=== PATIENT | female | born 1965 | race Caucasian/White ===

== ENCOUNTER 2017-07-21 07:47 | Day surgery (SDC) | payer MEDICAID ==
[~2017-07-21] VITALS: Ht 167.6 cm; Wt 56.8 kg
[2017-07-21 08:05] VITALS: BP 116/75; PULSE 56; RESP 20; TEMP 97.9; O2SAT 98
[2017-07-21 08:57] LABS: AUTOMATED NEUTROPHIL # 2.5 TH/MM3 (1.8-7.7); BASOPHIL # 0.1 TH/MM3 (0-0.2); BASOPHIL % 1.2 % (0.0-2.0); EOSINOPHIL # 0.1 TH/MM3 (0-0.4); EOSINOPHIL % 2.5 % (0.0-4.0); HEMATOCRIT 41.2 % (35.0-46.0); HEMO FLAGS DIFF FINAL; LYMPH % 30.8 % (9.0-44.0); LYMPHOCYTE # 1.4 TH/MM3 (1.0-4.8); MEAN CELL VOLUME 90.2 FL (80.0-100.0); MEAN CORPUSCULAR HEMOGLOBIN 30.8 PG (27.0-34.0); MEAN CORPUSCULAR HGB CONC 34.2 % (32.0-36.0); MONO % 10.7 % (0.0-8.0); NEUT % 54.8 % (16.0-70.0); PLATELET COUNT 238 TH/MM3 (150-450); RED BLOOD COUNT 4.57 MIL/MM3 (4.00-5.30); RED CELL DISTRIBUTION WIDTH 13.6 % (11.6-17.2); WHITE BLOOD COUNT 4.6 TH/MM3 (4.0-11.0)
[2017-07-21 09:03] LABS: APTT (PATIENT) 26.2 SEC (24.3-30.1); INTERNATIONAL NORMALIZED RATIO 0.9 RATIO; PROTHROMBIN TIME - PATIENT 10.3 SEC (9.8-11.6)
[2017-07-21] MEDS ORDERED: LIDOCAINE HCL 1% 20 ML VIAL ONE (09:17)
[2017-07-21] MEDS ORDERED: MIDAZOLAM HCL 2 MG/2 ML VIAL ONE (09:19)
[2017-07-21 10:30] VITALS: BP 107/70; PULSE 60; RESP 16; TEMP 97.5
[2017-07-21 10:40] LABS: BONE MARROW PROCESSING COMPLETE; IRON STAIN DONE; JENNER GIEMSA STAIN DONE
--- NOTE | 2017-07-21 10:44 | RADRPT ---
EXAM DATE/TIME: 07/21/2017 09:55 [facility] COMPARISON: No previous studies available for comparison. INDICATIONS : Lymphoma SEDATION TIME: 30 minutes BIOPSY SITE: Right ilium MEDICATION(S): 1.) 2 mg midazolam (Versed) IV 2.) 100 mcg fentanyl (Sublimaze) IV DEVICE(S): 1.) 12 gauge On-Control needle MEDICAL HISTORY : Lymphoma. SURGICAL HISTORY : None. ENCOUNTER: Initial ACUITY: 1 day PAIN SCORE: 0/10 LOCATION: lower quadrant A total of one core specimen(s) were obtained and sent to the laboratory for pathologic evaluation. PROCEDURE: 1. CT guided bone marrow biopsy. Prior to the procedure informed consent was obtained. Any appropriate prior imaging studies were rev iewed. Using automated exposure control and adjustment of the mA and/or kV according to patient size , radiation dose was kept as low as reasonably achievable to obtain optimal diagnostic quality images . DICOM format image data is available electronically for review and comparison. The site was prepped in a sterile fashion. Full sterile technique was used, including cap, mask, kristina rile gloves and gown and a large sterile sheet. Hand hygiene and 2% chlorhexidine and/or betadine/al cohol prep was utilized per protocol for cutaneous antisepsis. The skin and subcutaneous tissues wer e infiltrated with local anesthetic solution. With CT guidance the previously identified target was localized. Biopsy was performed using the presc ribed needle as above. Following biopsy marrow aspiration was performed with repeat puncture. Adequa te hemostasis was obtained with compression at the puncture site. Follow-up CT scan reveals no hemorrhage. Conscious sedation was performed with the prescribed dosages and duration as above in the presence of an independent trained radiology nurse to assist in the monitoring of the patient. EKG and oximetry remained stable throughout the procedure. The patient tolerated the procedure well and there were no complications. The patient was sent to Radiology Outpatient Unit in stable condition. CONCLUSION: 1. Uncomplicated CT guided bone marrow aspirate. 2. Uncomplicated CT guided bone marrow biopsy. Sukhi Santana MD on July 21, 2017 at 10:42 Board Certified Radiologist. This report was verified electronically.
[2017-07-21 10:45] VITALS: BP 104/69; PULSE 50; RESP 14; O2SAT 94
--- NOTE | 2017-07-21 11:10 | PD.RAD ---
Post CT Procedure Prog Note Pre Procedure Diagnosis: (1) Non-Hodgkin lymphoma Post Procedure Diagnosis: (1) Non-Hodgkin lymphoma Procedure Date: Jul 21, 2017 Supervising Radiologist: Sukhi Santana Anesthesia: Conscious Sedation Plan of Activity Patient to Unit: [facility] Patient Condition: Good See PACS Report for procedural detail/treatment Biopsy Imaging Guidance: CT Side: Right Biopsy Procedure: Bone Marrow Specimen: Core Biopsy Sukhi Santana MD Jul 21, 2017 11:10
[2017-07-21 11:15] VITALS: BP 106/69; PULSE 53; RESP 16; O2SAT 96
[2017-07-21 11:45] VITALS: BP 104/77; PULSE 54; RESP 16; O2SAT 95
[2017-07-21 12:15] VITALS: BP 106/63; PULSE 56; RESP 16; O2SAT 96
== END 2017-07-21 12:45 | disposition home or self-care (01) ==
LOC: HROP 07:47 → HRIP 07:48 → HROP 12:45
PROVIDERS: ATTEND Internal Medicine
DX: C85.90 Non-Hodgkin lymphoma, unspecified, unspecified site (principal)
CPT/HCPCS: 38221; 77012; 85025; 85097; 85610; 85730; 88305; 88311; 88313; 99152; 99153; C1830; G0364; J2250; J3010

== ENCOUNTER 2017-08-05 12:22 | Observation (INO) | payer MEDICAID ==
[~2017-08-05] VITALS: Ht 170.2 cm; Wt 57.7 kg
[2017-08-05 12:23] VITALS: BP 149/69; PULSE 97; RESP 16; TEMP 98; O2SAT 99
[2017-08-05 12:45] VITALS: BP 122/73; PULSE 54; RESP 16; O2SAT 98
[2017-08-05 13:45] LABS: AUTOMATED NEUTROPHIL # 3.3 TH/MM3 (1.8-7.7); BASOPHIL # 0.1 TH/MM3 (0-0.2); BASOPHIL % 1.2 % (0.0-2.0); EOSINOPHIL # 0.1 TH/MM3 (0-0.4); EOSINOPHIL % 1.3 % (0.0-4.0); HEMATOCRIT 40.7 % (35.0-46.0); HEMO FLAGS DIFF FINAL; LYMPH % 28.6 % (9.0-44.0); LYMPHOCYTE # 1.6 TH/MM3 (1.0-4.8); MEAN CELL VOLUME 90.3 FL (80.0-100.0); MEAN CORPUSCULAR HEMOGLOBIN 30.3 PG (27.0-34.0); MEAN CORPUSCULAR HGB CONC 33.6 % (32.0-36.0); MONO % 9.7 % (0.0-8.0); NEUT % 59.2 % (16.0-70.0); PLATELET COUNT 258 TH/MM3 (150-450); RED BLOOD COUNT 4.51 MIL/MM3 (4.00-5.30); RED CELL DISTRIBUTION WIDTH 13.4 % (11.6-17.2); WHITE BLOOD COUNT 5.6 TH/MM3 (4.0-11.0)
[2017-08-05] MEDS ORDERED: NALOXONE HCL 0.4 MG/ML AMP IV PUSH PRN (13:45)
[2017-08-05] MEDS ORDERED: ACETAMINOPHEN 325 MG TAB PO PRN ×2 (13:45)
[2017-08-05] MEDS ORDERED: MORPHINE SULFATE 4 MG/ML INJ IV PUSH PRN (13:45)
[2017-08-05] MEDS ORDERED: SODIUM CHLORIDE 0.9% FLUSH 10 ML FLUSH IV FLUSH PRN (13:45)
[2017-08-05 14:06] LABS: ANION GAP 7 MEQ/L (5-15); AST (GOT) 15 U/L (15-37); BICARBONATE 28.4 MEQ/L (21.0-32.0); BLOOD UREA NITROGEN 9 MG/DL (7-18); CHLORIDE 106 MEQ/L (98-107); GLOMERULAR FILTRATION RATE 72 ML/MIN (>89); POTASSIUM 3.9 MEQ/L (3.5-5.1); SODIUM (NA) 141 MEQ/L (136-145)
[2017-08-05 14:07] LABS: ALT (GPT) 17 U/L (10-53)
[2017-08-05 14:10] LABS: ALKALINE PHOSPHATASE 79 U/L (45-117); TOTAL BILIRUBIN ADULT 0.8 MG/DL (0.2-1.0)
[2017-08-05 14:26] VITALS: O2SAT 99
--- NOTE | 2017-08-05 14:29 | PD ---
HPI Chief Complaint: Lump, Cyst, Hernia Time Seen by Provider: 12:50 Travel History International Travel<30 days: No Contact w/Intl Traveler<30days: No Traveled to known affect area: No History of Present Illness HPI 51-year-old woman presents to the emergency department complaining of dizziness weakness shortness of breath and difficulty swallowing. She is a history of remote non-Hodgkin's lymphoma, never treated. Presents with worsening neck mass. Initially was evaluate by Dr. Maldonado, and oncology. She's had a PET scan, bone marrow biopsy, multiple labs. He still did have an excisional biopsy. When for an appointment with him today and was sent to the emergency department for worsening trouble swallowing, shortness of breath, dizziness. I spoke with Dr. Garcia states she is worried about proximity to the carotid given the large size of the mass. Recommended admission for further evaluation. History Past Medical History Narrative Medical Probable lymphoma Tetanus Vaccination: > 5 Years Social History Alcohol Use: No Tobacco Use: No Allergies-Medications (Allergen,Severity, Reaction): Coded Allergies: amoxicillin (Verified Allergy, Severe, Rash, 08/05/17) Reported Meds & Prescriptions Reported Meds & Active Scripts Active No Active Prescriptions or Reported Medications Review of Systems Except as stated in HPI: all other systems reviewed are Neg Physical Exam Narrative GENERAL: 51-year-old woman, no acute distress. SKIN: Focused skin assessment warm/dry. HEAD: Atraumatic. Normocephalic. EYES: Pupils equal and round. No scleral icterus. No injection or drainage. ENT: No nasal bleeding or discharge. Mucous membranes pink and moist. NECK: Trachea midline. No JVD. Heart palpable adenopathy, especially on the left. CARDIOVASCULAR: Regular rate and rhythm. No murmur appreciated. RESPIRATORY: No accessory muscle use. Clear to auscultation. Breath sounds equal bilaterally. GASTROINTESTINAL: Abdomen soft, non-tender, nondistended. Hepatic and splenic margins not palpable. MUSCULOSKELETAL: No obvious deformities. No clubbing. No cyanosis. No edema. NEUROLOGICAL: Awake and alert. No obvious cranial nerve deficits. Motor grossly within normal limits. Normal speech. PSYCHIATRIC: Appropriate mood and affect; insight and judgment normal. Data Data Last Documented VS Vital Signs Date Time Temp Pulse Resp B/P (MAP) Pulse Ox O2 Delivery O2 Flow Rate FiO2 08/05/17 12:45 54 16 122/73 (89) 98 Room Air 08/05/17 12:23 98.0 Orders Orders Complete Blood Count With Diff (08/05/17 13:13) Comprehensive Metabolic Panel (08/05/17 13:13) Iv Access Insert/Monitor (08/05/17 13:13) Consult Medical Oncology (08/05/17 ) (Hub Use Only)Inp Phy Cons/Ref (08/05/17 ) Admit Order (Ed Use Only) (08/05/17 ) Vital Signs (Adult) Q4H (08/05/17 13:43) Activity Bed Rest (08/05/17 13:43) Notify Dr: Other (08/05/17 13:43) Admit To Inpatient (08/05/17 ) Vital Signs (Adult) Q4H (08/05/17 13:43) Activity Oob With Assistance (08/05/17 13:43) Diet Npo (08/05/17 Lunch) Sodium Chlor 0.9% 1000 Ml Inj (Ns 1000 M (08/05/17 13:43) Sodium Chloride 0.9% Flush (Ns Flush) (08/05/17 13:45) Sodium Chloride 0.9% Flush (Ns Flush) (08/05/17 21:00) Acetaminophen (Tylenol) (08/05/17 13:45) Resp Oxygen Chucho C Titrat 1-4 L (08/05/17 ) Case Management Consult (08/05/17 13:43) Enoxaparin Inj (Lovenox Inj) (08/05/17 13:45) Acetaminophen (Tylenol) (08/05/17 13:45) Oxycodone (Roxicodone) (08/05/17 13:45) Morphine Inj (Morphine Inj) (08/05/17 13:45) Oxycodone (Roxicodone) (08/05/17 13:45) Naloxone Inj (Narcan Inj) (08/05/17 13:45) Docusate Sodium-Senna (Zuly-Colace) (08/05/17 21:00) Inpatient Certification (08/05/17 ) Labs Laboratory Tests Test 08/05/17 13:25 White Blood Count 5.6 TH/MM3 Red Blood Count 4.51 MIL/MM3 Hemoglobin 13.7 GM/DL Hematocrit 40.7 % Mean Corpuscular Volume 90.3 FL Mean Corpuscular Hemoglobin 30.3 PG Mean Corpuscular Hemoglobin Concent 33.6 % Red Cell Distribution Width 13.4 % Platelet Count 258 TH/MM3 Mean Platelet Volume 7.4 FL Neutrophils (%) (Auto) 59.2 % Lymphocytes (%) (Auto) 28.6 % Monocytes (%) (Auto) 9.7 % Eosinophils (%) (Auto) 1.3 % Basophils (%) (Auto) 1.2 % Neutrophils # (Auto) 3.3 TH/MM3 Lymphocytes # (Auto) 1.6 TH/MM3 Monocytes # (Auto) 0.5 TH/MM3 Eosinophils # (Auto) 0.1 TH/MM3 Basophils # (Auto) 0.1 TH/MM3 CBC Comment DIFF FINAL Differential Comment Blood Urea Nitrogen 9 MG/DL Creatinine 0.83 MG/DL Random Glucose 80 MG/DL Total Protein 7.5 GM/DL Albumin 4.0 GM/DL Calcium Level 8.7 MG/DL Alkaline Phosphatase 79 U/L Aspartate Amino Transf (AST/SGOT) 15 U/L Alanine Aminotransferase (ALT/SGPT) 17 U/L Total Bilirubin 0.8 MG/DL Sodium Level 141 MEQ/L Potassium Level 3.9 MEQ/L Chloride Level 106 MEQ/L Carbon Dioxide Level 28.4 MEQ/L Anion Gap 7 MEQ/L Estimat Glomerular Filtration Rate 72 ML/MIN [facility] Medical Decision Making Medical Screen Exam Complete: Yes Emergency Medical Condition: Yes Medical Record Reviewed: Yes Differential Diagnosis Adenopathy, lymphoma, leukemia, metastatic malignancy. Narrative Course Medical decision-making new para 51-year-old with worsening neck mass, causing local mass effect, worsening symptoms. Referred by Dr. Maldonado for further evaluation. Diagnosis Primary Impression: Lymphadenopathy, axillary Additional Impression: Lymphadenopathy of head and neck Admitting Information Admitting Physician Requests: Admit Scripts No Active Prescriptions or Reported Meds Brayden Nieves MD Aug 05, 2017 14:29
[2017-08-05] MEDS: SODIUM CHLOR 0.9% 1000 ML INJ 1,000 ML IV SCH ×2 (14:47→20:47)
[2017-08-05] MEDS: ENOXAPARIN SODIUM 40 MG/0.4 ML SYRINGE SQ SCH (15:00)
--- NOTE | 2017-08-05 15:13 | HHI.HP ---
[facility] No Primary Care Physician Admission Diagnosis neck mass, dizziness, shortness of breath, dizziness Diagnoses: Chief Complaint: Neck mass Travel History International Travel<30 Days: No Contact w/Intl Traveler <30 Da: No Traveled to Known Affected Are: No History of Present Illness The patient is a 51-year-old female with a past medical history significant for non-Hodgkin's lymphoma for the past 10 years who is presenting to the hospital with an increasing left neck mass. The patient says she was diagnosed with non- Hodgkin's lymphoma 10 years ago and she did not receive any treatment for it. She said she moved from [place] to [place] 5 years ago and has not followed with a doctor for the past 5 years. She says over the past year she has noticed the left neck mass to be increasing in size. She feels like the mass is spreading more centrally in her neck. She has also been having some difficulty eating and swallowing at times. She has endorsed shortness of breath but not currently. Over the past 6 months she has been experiencing symptoms of dizziness and blurry vision. She says she has also started to get migraine headaches which is new for her. She said she recently had a PET scan done. She went to her oncologist who referred her to the hospital to have a biopsy of the mass and further workup including a brain MRI for her ongoing symptoms. The patient says she doesn't like to take medications. She does take herbal supplements such as turmeric. She states she is very sensitive to medications and is very concerned about what chemotherapy could do to her. She does not want a port placed at this time. Review of Systems Except as stated in HPI: all other systems reviewed are Neg Past Family Social History Past Medical History Migraines Non-Hodgkin's lymphoma Allergies: Coded Allergies: amoxicillin (Verified Allergy, Severe, Rash, 08/05/17) Active Ordered Medications Current Medications Medications (Trade) Dose Ordered Sig/Akshat Route Start Time Stop Time Status Last Admin Sodium Chloride 1,000 ml @ 100 mls/hr Q10H IV 08/05/17 13:43 08/05/17 14:47 (NS Flush) 2 ml UNSCH PRN IV FLUSH 08/05/17 13:45 (NS Flush) 2 ml BID IV FLUSH 08/05/17 21:00 (Tylenol) 650 mg Q4H PRN PO 08/05/17 13:45 (Lovenox Inj) 40 mg Q24H SQ 08/05/17 15:00 08/05/17 15:00 (Tylenol) 650 mg Q6H PRN PO 08/05/17 13:45 (Roxicodone) 10 mg Q4H PRN PO 08/05/17 13:45 (Morphine Inj) 4 mg Q3H PRN IV PUSH 08/05/17 13:45 (Roxicodone) 5 mg Q4H PRN PO 08/05/17 13:45 (Narcan Inj) 0.4 mg UNSCH PRN IV PUSH 08/05/17 13:45 (Zuly-Colace) 1 tab BID PO 08/05/17 21:00 Family History The patient is adopted Social History The patient does not smoke, drink or use illicit substances Physical Exam Vital Signs Vital Signs Date Time Temp Pulse Resp B/P (MAP) Pulse Ox O2 Delivery O2 Flow Rate FiO2 08/05/17 14:26 99 21 08/05/17 12:45 54 16 122/73 (89) 98 Room Air 08/05/17 12:42 18 08/05/17 12:23 98.0 97 16 149/69 (95) 99 Room Air Physical Exam GENERAL: This is a well-nourished, well-developed patient, in no apparent distress. SKIN: No rashes, ecchymoses or lesions. Cool and dry. HEAD: Atraumatic. Normocephalic. No temporal or scalp tenderness. EYES: Pupils equal round and reactive. Extraocular motions intact. No scleral icterus. No injection or drainage. ENT: Nose without bleeding, purulent drainage or septal hematoma. Throat without erythema, tonsillar hypertrophy or exudate. Uvula midline. Airway patent. NECK: Mass on the left side of the neck with associated lymphadenopathy. CARDIOVASCULAR: Regular rate and rhythm without murmurs, gallops, or rubs. RESPIRATORY: Clear to auscultation. Breath sounds equal bilaterally. No wheezes , rales, or rhonchi. GASTROINTESTINAL: Abdomen soft, non-tender, nondistended. No hepato-splenomegaly , or palpable masses. No guarding. MUSCULOSKELETAL: Extremities without clubbing, cyanosis, or edema. No joint tenderness, effusion, or edema noted. No calf tenderness. Negative Homans sign bilaterally. NEUROLOGICAL: Awake and alert. Cranial nerves II through XII intact. Motor and sensory grossly within normal limits. Five out of 5 muscle strength in all muscle groups. Normal speech. PSYCH: Mood and affect appropriate. Laboratory Laboratory Tests Test 08/05/17 13:25 White Blood Count 5.6 Red Blood Count 4.51 Hemoglobin 13.7 Hematocrit 40.7 Mean Corpuscular Volume 90.3 Mean Corpuscular Hemoglobin 30.3 Mean Corpuscular Hemoglobin Concent 33.6 Red Cell Distribution Width 13.4 Platelet Count 258 Mean Platelet Volume 7.4 Neutrophils (%) (Auto) 59.2 Lymphocytes (%) (Auto) 28.6 Monocytes (%) (Auto) 9.7 Eosinophils (%) (Auto) 1.3 Basophils (%) (Auto) 1.2 Neutrophils # (Auto) 3.3 Lymphocytes # (Auto) 1.6 Monocytes # (Auto) 0.5 Eosinophils # (Auto) 0.1 Basophils # (Auto) 0.1 CBC Comment DIFF FINAL Differential Comment Blood Urea Nitrogen 9 Creatinine 0.83 Random Glucose 80 Total Protein 7.5 Albumin 4.0 Calcium Level 8.7 Alkaline Phosphatase 79 Aspartate Amino Transf (AST/SGOT) 15 Alanine Aminotransferase (ALT/SGPT) 17 Total Bilirubin 0.8 Sodium Level 141 Potassium Level 3.9 Chloride Level 106 Carbon Dioxide Level 28.4 Anion Gap 7 Estimat Glomerular Filtration Rate 72 Result Diagram: 08/05/17 1325 08/05/17 1325 Caprini VTE Risk Assessment Caprini VTE Risk Assessment: Mod/High Risk (score >= 2) Caprini Risk Assessment Model Point Value = 1 Point Value = 2 Point Value = 3 Point Value = 5 Age 41-60 Minor surgery BMI > 25 kg/m2 Swollen legs Varicose veins or History of unexplained or recurrent spontaneous Oral contraceptives or hormone replacement Sepsis (< 1 month) Serious lung disease, including pneumonia (< 1 month) Abnormal pulmonary function Acute myocardial infarction Congestive heart failure (< 1 month) History of inflammatory bowel disease Medical patient at bed rest Age 61-74 Arthroscopic surgery Major open surgery (> 45 min) Laparoscopic surgery (> 45 min) Malignancy Confined to bed (> 72 hours) Immobilizing plaster cast Central venous access Age >= 75 History of VTE Family history of VTE Factor V Leiden Prothrombin [id number] Lupus anticoagulant Anticardiolipin antibodies Elevated serum homocysteine Heparin-induced thrombocytopenia Other congenital or acquired thrombophilia Stroke (< 1 month) Elective arthroplasty Hip, pelvis, or leg fracture Acute spinal cord injury (< 1 month) Prophylaxis Regimen Total Risk Factor Score Risk Level Prophylaxis Regimen 0-1 Low Early ambulation 2 Moderate Order ONE of the following: *Sequential Compression Device (SCD) *Heparin 5000 units SQ BID 3-4 Higher Order ONE of the following medications: *Heparin 5000 units SQ TID *Enoxaparin/Lovenox 40 mg SQ daily (WT < 150 kg, CrCl > 30 mL/min) *Enoxaparin/Lovenox 30 mg SQ daily (WT < 150 kg, CrCl > 10-29 mL/min) *Enoxaparin/Lovenox 30 mg SQ BID (WT < 150 kg, CrCl > 30 mL/min) AND/OR *Sequential Compression Device (SCD) 5 or more Highest Order ONE of the following medications: *Heparin 5000 units SQ TID (Preferred with Epidurals) *Enoxaparin/Lovenox 40 mg SQ daily (WT < 150 kg, CrCl > 30 mL/min) *Enoxaparin/Lovenox 30 mg SQ daily (WT < 150 kg, CrCl > 10-29 mL/min) *Enoxaparin/Lovenox 30 mg SQ BID (WT < 150 kg, CrCl > 30 mL/min) AND *Sequential Compression Device (SCD) Assessment and Plan Assessment and Plan Non-Hodgkin's lymphoma Diagnosed 10 years ago and has not had any treatment. Now with increasing left neck mass causing difficulty with eating at times. Referred to hospital by oncologist. - oncology consult requested. - general surgery consult placed for excisional biopsy of left neck mass. - keep the pt NPO for now with IVFs. - oxygen as needed. Blurry vision/ Dizziness/ Migraines Ongoing for the past six months. - MRI of the brain with and without contrast pending. - follow up with oncology. PPx: Lovenox Discussed Condition With Pt, Dr. Kayleigh Grider Physician Certification 2 Midnight Certification Type: Admission for Inpatient Services Order for Inpatient Services The services are ordered in accordance with Medicare regulations or non- Medicare payer requirements, as applicable. In the case of services not specified as inpatient-only, they are appropriately provided as inpatient services in accordance with the 2-midnight benchmark. Estimated LOS (days): 2 days is the estimated time the patient will need to remain in the hospital, assuming treatment plan goals are met and no additional complications. Post-Hospital Plan: Home Seamus Fox DO Aug 05, 2017 15:13
[2017-08-05 16:00] VITALS: BP 113/74; PULSE 61; RESP 16; TEMP 97.3; O2SAT 98
--- NOTE | 2017-08-05 17:18 | PD.CONS ---
HPI Service General SUrgery Consult Requested By Dr. Fox Reason for Consult lymphadenopathy Primary Care Physician No Primary Care Physician History of Present Illness 51 yo F with 10 yr history of lymphoma. She underwent left supraclavicular lymph node bx ten years ago. She c/o increasing size of left neck swelling as well as dizziness. 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 PET/ CT performed as outpatient showed pelvic and inguinal lymph nodes as well as large mass of nodes in left neck which were all hypermetabolic. She has some mild difficulty swallowing. Recently she has been having migraines as well blurry vision. Review of Systems Constitutional: DENIES: Fever, Chills Eyes: COMPLAINS OF: Blurred vision Respiratory: DENIES: Cough, Shortness of breath Cardiovascular: DENIES: Chest pain, Palpitations Gastrointestinal: DENIES: Abdominal pain, Nausea Integumentary: DENIES: Pruritus, Rash Neurologic: COMPLAINS OF: Headache, Paresthesias (RUE) Past Family Social History Past Medical History Probable low grade lymphoma Past Surgical History left supraclavicular lympho node biopsy Bone marrow biopsy Reported Medications Reported Meds & Active Scripts Active No Active Prescriptions or Reported Medications Allergies: Coded Allergies: amoxicillin (Verified Allergy, Severe, Rash, 08/05/17) Active Ordered Medications Current Medications Medications (Trade) Dose Ordered Sig/Akshat Route Start Time Stop Time Status Last Admin Sodium Chloride 1,000 ml @ 100 mls/hr Q10H IV 08/05/17 13:43 08/05/17 14:47 (NS Flush) 2 ml UNSCH PRN IV FLUSH 08/05/17 13:45 (NS Flush) 2 ml BID IV FLUSH 08/05/17 21:00 (Tylenol) 650 mg Q4H PRN PO 08/05/17 13:45 (Lovenox Inj) 40 mg Q24H SQ 08/05/17 15:00 08/05/17 15:00 (Tylenol) 650 mg Q6H PRN PO 08/05/17 13:45 (Roxicodone) 10 mg Q4H PRN PO 08/05/17 13:45 (Morphine Inj) 4 mg Q3H PRN IV PUSH 08/05/17 13:45 (Roxicodone) 5 mg Q4H PRN PO 08/05/17 13:45 (Narcan Inj) 0.4 mg UNSCH PRN IV PUSH 08/05/17 13:45 (Zuly-Colace) 1 tab BID PO 08/05/17 21:00 Family History Noncontributory Social History No ETOH, tobacco, or drug use Physical Exam Vital Signs Vital Signs Date Time Temp Pulse Resp B/P (MAP) Pulse Ox O2 Delivery O2 Flow Rate FiO2 08/05/17 16:00 97.3 61 16 113/74 (87) 98 08/05/17 14:26 99 21 08/05/17 12:45 54 16 122/73 (89) 98 Room Air 08/05/17 12:42 18 08/05/17 12:23 98.0 97 16 149/69 (95) 99 Room Air Physical Exam GENERAL: Awake and alert. No acute distress. Cooperative. HEAD: Normocephalic. Atraumatic. EYES: Pupils equal round and reactive to light bilaterally. No scleral icterus. NECK: multiple enlarged soft rubbery masses left supraclavicular area CHEST: Lungs clear to auscultation bilaterally with no wheezing or rhonchi. No respiratory distress. CARDIOVASCULAR: Regular rate and rhythm. EXTREMITIES: No cyanosis or edema. SKIN: Warm, dry, nonjaundiced. Laboratory Laboratory Tests Test 08/05/17 13:25 White Blood Count 5.6 Red Blood Count 4.51 Hemoglobin 13.7 Hematocrit 40.7 Mean Corpuscular Volume 90.3 Mean Corpuscular Hemoglobin 30.3 Mean Corpuscular Hemoglobin Concent 33.6 Red Cell Distribution Width 13.4 Platelet Count 258 Mean Platelet Volume 7.4 Neutrophils (%) (Auto) 59.2 Lymphocytes (%) (Auto) 28.6 Monocytes (%) (Auto) 9.7 Eosinophils (%) (Auto) 1.3 Basophils (%) (Auto) 1.2 Neutrophils # (Auto) 3.3 Lymphocytes # (Auto) 1.6 Monocytes # (Auto) 0.5 Eosinophils # (Auto) 0.1 Basophils # (Auto) 0.1 CBC Comment DIFF FINAL Differential Comment Blood Urea Nitrogen 9 Creatinine 0.83 Random Glucose 80 Total Protein 7.5 Albumin 4.0 Calcium Level 8.7 Alkaline Phosphatase 79 Aspartate Amino Transf (AST/SGOT) 15 Alanine Aminotransferase (ALT/SGPT) 17 Total Bilirubin 0.8 Sodium Level 141 Potassium Level 3.9 Chloride Level 106 Carbon Dioxide Level 28.4 Anion Gap 7 Estimat Glomerular Filtration Rate 72 Result Diagram: 08/05/17 1325 08/05/17 1325 Assessment and Plan Assessment and Plan 51 yo F with apparent lymphoma but last biopsy was 10 years ago. Oncology has requested lymph node biopsy. I reviewed PET/CT images. Will plan for left neck excisional biopsy tomorrow. SamJim MD Aug 05, 2017 17:18
[2017-08-05] MEDS ORDERED: GADODIAMIDE PF 287 MG/ML 10 ML VIAL (for RAD MRI) IVCONTRAST ONE (17:26)
[2017-08-05 17:52] VITALS: O2SAT 98
--- NOTE | 2017-08-05 18:08 | RADRPT ---
EXAM DATE/TIME: 08/05/2017 17:13 [facility] COMPARISON: No previous studies available for comparison. INDICATIONS : Dizziness. Blurred vision. CONTRAST: 10 cc Omniscan (gadodiamide) IV MEDICAL HISTORY : Lymphoma. SURGICAL HISTORY : Bone marrow biopsy. ENCOUNTER: Initial ACUITY: 1 day PAIN SCORE: 0/10 LOCATION: head. TECHNIQUE: Multiplanar, multisequence MRI of the brain was performed both prior to and following the administrat ion of paramagnetic contrast. FINDINGS: CONCLUSION: No acute disease. Ignacio Hill MD on August 05, 2017 at 18:05 Board Certified Radiologist. This report was verified electronically.
[2017-08-05] MEDS ORDERED: SODIUM CHLORID 0.9% 500 ML IV PRN (19:15)
[2017-08-05] MEDS ORDERED: POVIDONE IODINE 5% (ANTISEPSIS KIT) 4 APPLICATIONS EACH NARE PRN (19:15)
[2017-08-05] MEDS ORDERED: CHLORHEXIDINE GLUCONATE 2 % 1 PACK (2 CLOTHS) TOPICAL PRN (19:15)
[2017-08-05] MEDS ORDERED: LACTATED RINGER'S 1000 ML IV PRN (19:15)
[2017-08-05] MEDS ORDERED: INSULIN HUMAN REGULAR 1,000 UNITS/10 ML VIAL SQ PRN (19:15)
[2017-08-05] MEDS ORDERED: METOPROLOL TARTRATE 25 MG TAB PO PRN (19:15)
[2017-08-05 20:13] VITALS: BP 100/51; PULSE 71; RESP 16; TEMP 97.3; O2SAT 98
[2017-08-05] MEDS: DOCUSATE SODIUM 50 MG/SENNA 8.6 MG TAB PO SCH (20:46)
[2017-08-05] MEDS: SODIUM CHLORIDE 0.9% FLUSH 10 ML FLUSH IV FLUSH SCH (20:46)
--- NOTE | 2017-08-05 22:36 | EKG ---
Date Performed: 08/05/2017 Time Performed: 21:16:48 PTAGE: 51 years EKG: Sinus rhythm POSSIBLE LEFT ATRIAL ENLARGEMENT LOW QRS VOLTAGE IN PRECORDIAL LEADS POSSIBLE RIGHT VENTRICULAR COND UCTION DELAY MODERATE ST DEPRESSION ABNORMAL ECG NO PREVIOUS TRACING DOCTOR: Bacilio Watson Interpretating Date/Time 08/05/2017 22:35:43
[2017-08-06] VITALS (7 sets, daily range): BP systolic 93–130; BP diastolic 53–81; PULSE 55–100; RESP 17–21; TEMP 96.9–97.8; O2SAT 96–100
[2017-08-06] MEDS: SODIUM CHLOR 0.9% 1000 ML INJ 1,000 ML IV SCH (07:36)
[2017-08-06] MEDS: DOCUSATE SODIUM 50 MG/SENNA 8.6 MG TAB PO SCH (09:00)
[2017-08-06] MEDS: SODIUM CHLORIDE 0.9% FLUSH 10 ML FLUSH IV FLUSH SCH (09:00)
[2017-08-06] MEDS ORDERED: BUPIVACAINE/EPINEPHRINE 0.25% PF 30 ML VIAL ONE (11:02)
[2017-08-06] MEDS ORDERED: HYDR-3516 PO (11:11)
[2017-08-06 11:57] LABS: BICARBONATE 27.8 MEQ/L (21.0-32.0)
[2017-08-06] MEDS ORDERED: PROPOFOL 200 MG/20 ML AMP IV ONE (12:00)
[2017-08-06] MEDS ORDERED: ePHEDrine/NS 25 MG/5 ML SYR IV ONE (12:00)
[2017-08-06] MEDS ORDERED: MIDAZOLAM HCL 2 MG/2 ML VIAL IV ONE (12:00)
[2017-08-06] MEDS ORDERED: ONDANSETRON HCL 4 MG/2 ML VIAL IV ONE (12:00)
[2017-08-06] MEDS ORDERED: DEXAMETHASONE SOD PHOS 4 MG/ML VIAL IV ONE (12:00)
[2017-08-06] MEDS ORDERED: LIDOCAINE HCL 1% PF 5 ML SYRINGE OTHER ONE (12:00)
[2017-08-06] MEDS ORDERED: LACTATED RINGER'S 1000 ML INJ 1,000 ML IV ONE (12:00)
[2017-08-06] MEDS ORDERED: APREPITANT 40 MG CAP ONE (12:11)
[2017-08-06] MEDS ORDERED: FAMOTIDINE 20 MG/2 ML VIAL ONE (12:11)
--- NOTE | 2017-08-06 13:13 | PD.OP ---
cc: Jim Vargas MD; Kendall Victor MD Operative Report Date of Surgery: Aug 06, 2017 Preoperative Diagnosis: (1) Non-Hodgkin lymphoma (2) Lymphadenopathy of head and neck Postoperative Diagnosis: (1) Non-Hodgkin lymphoma (2) Lymphadenopathy of head and neck Procedure: Excisional biopsy left neck lymph node Anesthesia: Gen Surgeon: Jim Vargas Lean Consultant(s): Bharti KNIGHT Operation and Findings: EBL: 5 cc Findings: Multiple enlarged lymph nodes of the left supraclavicular area. A single somewhat necrotic lymph node was excised and sent to pathology. Procedure in detail: The patient was taken to the operating room and placed in supine position. General endotracheal anesthesia was induced. The left neck was prepped and draped in usual sterile fashion and a surgical timeout was performed to verify correct patient procedure and site. There are multiple enlarged lymph nodes in the left lower neck and supraclavicular area. A transverse incision was made overlying one of the more superficial nodes. Dissection carried out through subcutaneous tissue and platysma with electrocautery. An enlarged lymph node was encountered and it was excised using electrocautery and blunt dissection. It did fragment somewhat. It was attached to the larger nodes but opted not to continue with dissection as she had a large area of matted lymph nodes. Hemostasis was achieved in the area. The incision was closed with 3-0 Vicryl suture in the platysmal layer and Dermabond pen for the skin. The patient tolerated procedure well was x-rayed and taken to PACU in stable condition. Jim Vargas MD Aug 06, 2017 13:13
--- NOTE | 2017-08-06 13:33 | HHI.DCPOC ---
Discharge Care Plan Diagnosis: (1) Neck mass (2) Non-Hodgkin lymphoma Goals to Promote Your Health * To prevent worsening of your condition and complications * To maintain your health at the optimal level Directions to Meet Your Goals Take your medications as prescribed Follow your dietary instruction Follow activity as directed Keep your appointments as scheduled Take your immunizations and boosters as scheduled If your symptoms worsen call your PCP, if no PCP go to Urgent Care Center or Emergency Room Smoking is Dangerous to Your Health. Avoid second hand smoke Call the 24-hour hour crisis hotline for domestic abuse at Nisreen Callahan MD Aug 06, 2017 13:33
--- NOTE | 2017-08-06 13:35 | HHI.DS ---
Discharge Summary Admission Date Aug 05, 2017 at 13:48 Admitting Diagnosis neck mass, dizziness, shortness of breath, dizziness Brief History - From Admission The patient is a 51-year-old female with a past medical history significant for non-Hodgkin's lymphoma for the past 10 years who is presenting to the hospital with an increasing left neck mass. The patient says she was diagnosed with non- Hodgkin's lymphoma 10 years ago and she did not receive any treatment for it. She said she moved from [place] to [place] 5 years ago and has not followed with a doctor for the past 5 years. She says over the past year she has noticed the left neck mass to be increasing in size. She feels like the mass is spreading more centrally in her neck. She has also been having some difficulty eating and swallowing at times. She has endorsed shortness of breath but not currently. Over the past 6 months she has been experiencing symptoms of dizziness and blurry vision. She says she has also started to get migraine headaches which is new for her. She said she recently had a PET scan done. She went to her oncologist who referred her to the hospital to have a biopsy of the mass and further workup including a brain MRI for her ongoing symptoms. The patient says she doesn't like to take medications. She does take herbal supplements such as turmeric. She states she is very sensitive to medications and is very concerned about what chemotherapy could do to her. She does not want a port placed at this time. CBC/BMP: 08/05/17 1325 08/06/17 0940 Significant Findings Laboratory Tests Test 08/05/17 13:25 08/06/17 09:40 Monocytes (%) (Auto) 9.7 % (0.0-8.0) Estimat Glomerular Filtration Rate 72 ML/MIN (>89) Chloride Level 109 MEQ/L (98-107) Pt update on day of discharge Follow-up for neck mass Patient denies any shortness of breathing or difficulty swallowing. She stated that she is able to swallow but there is some mild discomfort at the site of the mass. Patient remains afebrile. Stated that she not she did not get treated for her lymphoma because she did not have insurance and that she was trying to get insurance for the past 10 years. In terms of her lightheadedness she stated that it's more when she gets it from a laying down position to a sitting or standing up. For example when she is working out laying down lifting weights she stated that when she gets up she feels lightheadedness in which she wants to pass out. She denies any chest pain , shortness of breathing, or palpitation. Patient stated that she has a history of low blood pressure. Discussed case with patient's nurse. Discussed case with Dr. Vargas, general surgeon and Dr. Alvarado her oncologist they cleared patient for discharge. Hospital Course Patient had a relatively uncommon K to hospital course. She was being worked up for an increased left neck mass was most likely secondary to non-Hodgkin's lymphoma. Patient was diagnosed with non-Hodgkin's lymphoma 10 years ago but did not have any treatment. Surgery was consulted for a excisional biopsy of the left neck mass in which patient had no complications. In terms of her blurry vision/lightheadedness and MRI was obtained and that was negative. Orthostatic showed Nisreen Callahan MD Aug 06, 2017 13:35
[2017-08-06] MEDS: ENOXAPARIN SODIUM 40 MG/0.4 ML SYRINGE SQ SCH (14:07)
[2017-08-06] MEDS ORDERED: DO NOT ADM ANY ANTICOAGULANT DRUGS PRN (14:15)
--- NOTE | 2017-08-07 08:10 | MB ---
cc: KAREEM SMITH DATE OF CONSULTATION 08/06/2017 REASON FOR CONSULTATION Patient with a history of lymphoma, now having a large left-sided neck mass. HISTORY OF PRESENT ILLNESS Ms. Harrington is a 51-year-old female who has a past medical history of non-Hodgkin lymphoma. She has never received any treatment for lymphoma. She was originally diagnosed in 2007. She was in [place] at that time and was seen by [facility] Hematology/Oncology. It appears that she had a low grade lymphoma. She remained under observation until 2011. She was known to have right-sided inguinal lymphadenopathy as well as hypermetabolic left cervical adenopathy. She also had bilateral hypermetabolic supraclavicular lymph nodes. Mediastinal lymphadenopathy was also present. There was also abdominal lymphadenopathy. Apparently the patient did not have any signs or symptoms at that time and remained under observation. She did not have any followup with an oncologist after she moved to [facility] in 2011. She was recently referred to the oncology clinic for increasing night sweats, weight loss of several pounds, decrease in appetite an enlarging left neck mass. PET scan was obtained and this showed extensive lymphadenopathy involving the left neck, chest and abdomen. She had a bone marrow biopsy and the findings supported a follicular lymphoma diagnosis. However, this was not confirmed. She now presents to the emergency department with episodes of dizziness and a large neck mass. She was admitted to the hospital. I spoke with the hospitalist and I had recommended a consultation with Surgery so we can obtain an excisional biopsy. The patient today denies any pain. However, she has discomfort with and cooling sensation in the left neck. She has not had any episodes of dizziness today. Her blood pressure is stable. No episodes of bleeding. REVIEW OF SYSTEMS A comprehensive review of systems was completed which is all negative except as described in the HPI above. PAST MEDICAL HISTORY 1. Non-Hodgkin's lymphoma. 2. History of migraines. PAST SURGICAL HISTORY None. MEDICATIONS 1. Roxicodone 10 mg q.4 hours p.r.n. 2. Morphine 4 mg IV q.3 hours p.r.n. 3. Colace 1 tablet p.o. b.i.d. ALLERGIES She is allergic to AMOXICILLIN. FAMILY HISTORY Reviewed and it is noncontributory to this admission. SOCIAL HISTORY She does not smoke cigarettes. No alcohol abuse. No illicit drug use. PHYSICAL EXAMINATION VITAL SIGNS: Blood pressure is 116/71, pulse is in the 50s, temperature 97.8, O2 sats are 99% on room air. General: A thin cachectic female in no apparent distress. HEENT: Pupils are equal, round, reactive to light. EOMI. No oral thrush. No oral lesions. NECK: Left neck mass was quite large, approximately 10 cm x 6 cm. LUNGS: Chest is clear to auscultation bilaterally. CARDIAC: S1-S2. Regular rate and rhythm. ABDOMEN: Soft, not tender, not distended. Bowel sounds are present. EXTREMITIES: Without any edema, erythema or cyanosis. SKIN: Without any petechiae, lesion or bruises. NEURO: No focal deficits. PSYCHIATRIC: Mood and affect is appropriate. LABORATORY DATA WBC 5.6, hemoglobin is 13.7, MCV is 90.3, platelet count is 258. Serum chemistry: Sodium 143, potassium 4, chloride 109, CO2 27.8, BUN 8, creatinine 0.6, GRF is 105, glucose is 76, calcium is 8.8. Coagulation studies: PT is 7.3, INR 0.9, PTT 26.2. IMAGING STUDIES Reviewed in the EMR. ASSESSMENT AND PLAN This is a 51-year-old female who has a history of non-Hodgkin's lymphoma and has never received any treatment who now presents with enlarging left neck mass, dizziness, anorexia, weight loss and night sweats. 1. Enlarging left neck mass. This is quite large, approximately 9 cm x 6 cm. This is concerning for recurrent lymphoma. We need to obtain an excisional biopsy of this mass for pathological review. I have reviewed her bone marrow biopsy and this is concerning for B-cell lymphoma. She had B-cell rearrangement studies which revealed, a monoclonal pattern of immunoglobulin heavy chains. This is consistent with the presence of monoclonal lymphoid population with B-cell origin. I have also reviewed her cytogenetics. She had a normal female karyotype 46XX. Will await the results of the excisional biopsy. We will need to place a port since she will need systemic chemotherapy to treat this. I have reviewed her MRI of the brain. It does not show any acute abnormality. Continue supportive care during the admission. Once the biopsy is completed and if she is medically stable, she could be discharged home. She will follow up with the oncology clinic. MD SALOMÓN Smith/GIANNI /11:54 PM /7:33 AM
== END 2017-08-06 18:20 | disposition home or self-care (01) ==
LOC: NEPC 12:22 → INTOOBSV 13:48 → NEDA 13:48 → N07A 15:52
PROVIDERS: ADMIT Family Medicine; ATTEND Family Medicine
DX: C82.90 Follicular lymphoma, unspecified, unspecified site (principal); G43.909 Migraine, unspecified, not intractable, without status migrainosus; H53.8 Other visual disturbances; R42 Dizziness and giddiness; R22.1 Localized swelling, mass and lump, neck; R63.3 Feeding difficulties; R53.1 Weakness; R06.02 Shortness of breath; R94.31 Abnormal electrocardiogram [ECG] [EKG]; R59.0 Localized enlarged lymph nodes; R61 Generalized hyperhidrosis; R13.10 Dysphagia, unspecified
CPT/HCPCS: 38510; 70553; 80048; 80053; 85025; 88305; 93005; 99285; A9579; G0378; J1100; J1650; J2250; J2405; J3010; J7030; J7120; J8501

== ENCOUNTER 2017-09-03 06:53 | Day surgery (SDC) | payer MEDICAID ==
[~2017-09-03] VITALS: Ht 165.1 cm; Wt 56.8 kg
[2017-09-03 07:18] VITALS: BP 108/57; PULSE 59; RESP 20; TEMP 97.7; O2SAT 100
[2017-09-03] MEDS ORDERED: SODIUM CHLORIDE 0.9% 1000 ML IV SCH (07:45)
[2017-09-03] MEDS ORDERED: VANCOMYCIN 1000 MG/NS 250 ML - implanted port/tunneled catheter IV SCH ×2 (07:45)
[2017-09-03 07:56] LABS: PROTHROMBIN TIME - PATIENT 10.3 SEC (9.8-11.6)
[2017-09-03] MEDS ORDERED: SODIUM BICARBONATE 8.4% INJ 50 ML ONE (08:20)
[2017-09-03 09:30] VITALS: BP 100/59; PULSE 53; RESP 17; TEMP 97.9; O2SAT 100
[2017-09-03] MEDS ORDERED: SODIUM CHLORIDE 0.9% FLUSH 10 ML FLUSH IVF PRN (09:30)
--- NOTE | 2017-09-03 09:34 | PD.RAD ---
Post Procedure Progress Note Pre Procedure Diagnosis: (1) Non-Hodgkin lymphoma Post Procedure Diagnosis: (1) Non-Hodgkin lymphoma Procedure Date: Sep 03, 2017 Supervising Radiologist: Phil Neely Estimated blood loss: 3cc Plan of Activity Patient to Unit: ROPU Patient Condition: Good Additional Comments: Port placed via the right Ij catheter in good position Ok for use. Full dictated report to follow See PACS Report for procedural detail/treatment Phil Neely MD Sep 03, 2017 09:34
[2017-09-03 10:00] VITALS: BP 100/57; PULSE 57; RESP 18; O2SAT 100
[2017-09-03 10:30] VITALS: BP 108/72; PULSE 62; RESP 17; O2SAT 100
--- NOTE | 2017-09-03 14:03 | RADRPT ---
EXAM DATE/TIME: 09/03/2017 08:03 [facility] COMPARISON: No previous studies available for comparison. INDICATIONS : Patient with history of lymphoma.Now needs chemotherapy. MEDICAL HISTORY : 1. non hodgkin lymphoma 2. anorexia 3. Pnuemonia SURGICAL HISTORY : 1. left neck bx 2. bone marrow bx ENCOUNTER: Initial ACUITY: >1 year PAIN SCORE: 0/10 FLUORO TIME: 0.6 minutes IMAGE SERIES: 1 ACCESS: Right internal jugular vein Prophylactic antibiotics were administered with appropriate pre-procedure timing. Vancomycin within 2 hours of procedure, Ancef (or alternative) within 1 hour of procedure. DEVICE: 1. 8 [place] single lumen angio smart power port PROCEDURE : 1. Continuous pulse oximetry and EKG monitoring. 2. Ultrasound guidance for venous access. 3. Fluoroscopic guided implantable central venous port placement. The patient was placed supine. The neck was prepped in sterile fashion. Full sterile technique was u sed, including cap, mask, sterile gloves and gown, and a large sterile sheet. Hand hygiene and 2% ch lorhexidine Betadine was utilized per protocol for cutaneous antisepsis with appropriate dry time for site. Sterile gel and sterile probe cover were utilized for ultrasound guidance. The skin and sub cutaneous tissues were infiltrated with local anesthetic solution. Under direct ultrasound guidance, central venous access was accomplished in the targeted vessel. The ultrasound images depicting access guidance were stored and saved to PACS for permanent record. A s ubcutaneous pocket was created using blunt dissection. The port was introduced to the pocket. The c atheter tubing was fed through a subcutaneous tunnel to the venotomy site. The catheter tubing was c ut to a suitable length and then was introduced through a valved Peel-Away sheath and positioned with catheter tubing tip at the cavo-atrial junction level. The pocket incision was closed with subcutic ular Vicryl suture. Steri-Strips were applied. The port was flushed and locked with heparin solutio n per protocol. Sterile dressing was applied to the site. The patient tolerated the procedure well. EKG and oximetry remained stable throughout the procedure. The patient tolerated the procedure well a nd there were no complications. The patient was sent to post anesthesia recovery in stable condition. CONCLUSION: Uncomplicated ultrasound and fluoroscopic guided implanted central venous port catheter placement as described in detail above. An 8 Tunisian Power port was placed. The patient declined conscious sedatio n for the port. The procedure was performed under local anesthetic only Phil Neely MD on September 03, 2017 at 14:00 Board Certified Radiologist. This report was verified electronically.
== END 2017-09-03 10:30 | disposition home or self-care (01) ==
LOC: HROP 06:53 → HRIP 06:54 → HROP 10:30
PROVIDERS: ATTEND Internal Medicine
DX: Z45.2 Encounter for adjustment and management of vascular access device (principal); C85.90 Non-Hodgkin lymphoma, unspecified, unspecified site
CPT/HCPCS: 36561; 76937; 77001; 85610; 85730; C1788; J1642; J3370; J7030; J7050

== ENCOUNTER 2018-01-19 07:32 | Day surgery (SDC) | END 2018-01-19 10:40 | disposition home or self-care (01) | DX: Z45.2 Encounter for adjustment and management of vascular access device (principal); C85.90 Non-Hodgkin lymphoma, unspecified, unspecified site | CPT/HCPCS: 36590; J3370; J7030; J7050 ==